=== PATIENT | male | born 1975 | race Caucasian/White ===

== ENCOUNTER 2017-06-04 09:44 | Emergency (ER) | payer MEDICAID ==
[~2017-06-04] VITALS: Ht 185.4 cm; Wt 120.2 kg
[~2017-06-04 09:44] MED LIST: ALB18R INH; AMOX-559 PO; AZIT-1 PO; BENZ100C4 PO; CYCL10TA29 PO; FLUT16SP19 NS; HYDR-4308 PO; KET10 PO; NAPR500T75 PO; ONDA4TAB PO; PRED20TA6 PO; TRIA15CR40 TP
--- NOTE | 2017-06-04 09:46 | ER Report ---
History and Physical Time Seen By MD: 09:45 HPI/ROS CHIEF COMPLAINT: 2 days of vomiting and diarrhea HISTORY OF PRESENT ILLNESS: Patient is a 42-year-old male who presents to the emergency department for evaluation of nausea vomiting and diarrhea. Patient denies any abdominal pain. Patient has too numerous to count episodes of vomiting and diarrhea but notes no blood or mucus in the stool and denies blood in the vomit. Patient admits to history of asthma but no other medical problems. Patient has no known ill contacts. REVIEW OF SYSTEMS: Respiratory: No cough, no dyspnea. Cardiovascular: No chest pain, no palpitations. Gastrointestinal: Nausea vomiting and diarrhea, no abdominal pain Musculoskeletal: No back pain. Allergies: Coded Allergies: No Known Drug Allergies (Unverified , 06/04/17) Home Meds Active Scripts Diphenoxylate Hcl/Atropine (LOMOTIL TABLET) 1 Each Tablet, 1 EACH PO Q4H for diarrhea, #16 TAB 0 Refills Prov:QUE LOVE MD 06/04/17 Ondansetron Hcl (ZOFRAN) 4 Mg Tablet, 4 MG PO Q8H for Nausea, #15 TAB 0 Refills Prov:QUE LOVE MD 06/04/17 Discontinued Scripts Albuterol Sulfate (VENTOLIN HFA) 18 Gm Inh, 1-2 PUFF INH Q4-6H Y for SHORTNESS OF BREATH, #1 INH Prov:XIANG CASTAÑEDA PA-C 03/23/17 Benzonatate 100 Mg Cap (TESSALON PERLE 100 MG CAP) 100 Mg Capsule, 100 MG PO TID Y for COUGH, #15 CAP Prov:XIANG CASTAÑEDA PA-C 03/23/17 Prednisone (PREDNISONE) 20 Mg Tablet, 20 MG PO BID, #6 TAB Prov:XIANG CASTAÑEDA PA-C 03/23/17 Azithromycin (ZITHROMAX) 250 Mg Tablet, 0 PO QDAY, #6 TAB Prov:XIANG CASTAÑEDA PA-C 03/23/17 Past Medical/Surgical History Asthma Hx Smoking: No Smoking Status: Never Smoker Hx Substance Use Disorder: No Hx Alcohol Use: No Constitutional Vital Sign - Last 24 Hours 06/04/17 09:50 Temp 97.5 Pulse 69 Resp 16 B/P (MAP) 154/112 Pulse Ox 92 O2 Delivery Room Air Intake and Output 06/04/17 06/04/17 06/05/17 15:01 23:01 07:01 Intake Total 1000 ml Balance 1000 ml Physical Exam General Appearance: The patient is alert, has no immediate need for airway protection and no current signs of toxicity. Eyes: Pupils equal and round no injection. Respiratory: Chest is non tender, lungs are clear to auscultation. Cardiac: regular rate and rhythm Gastrointestinal: Abdomen is soft and non tender, no masses, bowel sounds normal. Musculoskeletal: Neck: Neck is supple and non tender. Extremities have full range of motion and are non tender. Skin: No rashes or lesions. Medical Decision Making Data Points Result Diagram: 06/04/17 0949 06/04/17 0949 Laboratory Hematology Test 06/04/17 09:49 Red Blood Count 5.54 M/uL (4.00-5.60) Mean Corpuscular Volume 84.0 fL (80.0-96.0) Mean Corpuscular Hemoglobin 29.0 pg (26.0-33.0) Mean Corpuscular Hemoglobin Concent 34.5 g/dL (32.0-36.0) Red Cell Distribution Width 13.6 % (11.5-14.5) Mean Platelet Volume 9.1 fL (7.2-11.1) Neutrophils (%) (Auto) 54.9 % (39.4-72.5) Lymphocytes (%) (Auto) 34.6 % (17.6-49.6) Monocytes (%) (Auto) 7.8 % (4.1-12.4) Eosinophils (%) (Auto) 1.7 % (0.4-6.7) Basophils (%) (Auto) 1.0 % (0.3-1.4) Nucleated RBC Relative Count (auto) 0.1 /100WBC Neutrophils # (Auto) 3.8 K/uL (2.0-7.4) Lymphocytes # (Auto) 2.4 K/uL (1.3-3.6) Monocytes # (Auto) 0.5 K/uL (0.3-1.0) Eosinophils # (Auto) 0.1 K/uL (0.0-0.5) Basophils # (Auto) 0.1 K/uL (0.0-0.1) Nucleated RBC Absolute Count (auto) 0.01 K/uL Sodium Level 140 mmol/L (137-145) Potassium Level 4.0 mmol/L (3.5-5.0) Chloride Level 103 mmol/L (98-107) Carbon Dioxide Level 23 mmol/L (22-30) Blood Urea Nitrogen 14 mg/dl (9-21) Creatinine 0.80 mg/dl (0.66-1.25) Glomerular Filtration Rate Calc > 60.0 Random Glucose 90 mg/dl (75-110) Calcium Level 9.2 mg/dl (8.4-10.2) Total Bilirubin 0.5 mg/dl (0.2-1.3) Aspartate Amino Transf (AST/SGOT) 30 U/L (0-35) Alanine Aminotransferase (ALT/SGPT) 42 U/L (0-56) Alkaline Phosphatase 96 U/L (0-126) Total Protein 8.0 gm/dl (6.3-8.2) Albumin 4.5 g/dl (3.5-5.0) Lipase 95 U/L (23-300) Chemistry Test 06/04/17 09:49 White Blood Count 6.9 k/uL (4.5-11.0) Red Blood Count 5.54 M/uL (4.00-5.60) Hemoglobin 16.1 g/dL (14.0-18.0) Hematocrit 46.5 % (42.0-52.0) Mean Corpuscular Volume 84.0 fL (80.0-96.0) Mean Corpuscular Hemoglobin 29.0 pg (26.0-33.0) Mean Corpuscular Hemoglobin Concent 34.5 g/dL (32.0-36.0) Red Cell Distribution Width 13.6 % (11.5-14.5) Platelet Count 216 K/uL (150-450) Mean Platelet Volume 9.1 fL (7.2-11.1) Neutrophils (%) (Auto) 54.9 % (39.4-72.5) Lymphocytes (%) (Auto) 34.6 % (17.6-49.6) Monocytes (%) (Auto) 7.8 % (4.1-12.4) Eosinophils (%) (Auto) 1.7 % (0.4-6.7) Basophils (%) (Auto) 1.0 % (0.3-1.4) Nucleated RBC Relative Count (auto) 0.1 /100WBC Neutrophils # (Auto) 3.8 K/uL (2.0-7.4) Lymphocytes # (Auto) 2.4 K/uL (1.3-3.6) Monocytes # (Auto) 0.5 K/uL (0.3-1.0) Eosinophils # (Auto) 0.1 K/uL (0.0-0.5) Basophils # (Auto) 0.1 K/uL (0.0-0.1) Nucleated RBC Absolute Count (auto) 0.01 K/uL Glomerular Filtration Rate Calc > 60.0 Calcium Level 9.2 mg/dl (8.4-10.2) Total Bilirubin 0.5 mg/dl (0.2-1.3) Aspartate Amino Transf (AST/SGOT) 30 U/L (0-35) Alanine Aminotransferase (ALT/SGPT) 42 U/L (0-56) Alkaline Phosphatase 96 U/L (0-126) Total Protein 8.0 gm/dl (6.3-8.2) Albumin 4.5 g/dl (3.5-5.0) Lipase 95 U/L (23-300) ED Course/Re-evaluation ED Course 06/04/2017 10:19:26 am Plan at this time will be IV hydration with normal saline we will give 4 mg of Zofran and 2 doses of Lomotil. Re-evaluation 06/04/2017 11:30:49 am patient feeling improved after 1 L of normal saline Lomotil and Zofran. Plan will be discharge home with a 48 hours off from work patient also requesting refill prescription of his Proventil inhaler. Decision to Disposition Date: Jun 04, 2017 Decision to Disposition Time: 11:31 Depart Departure Latest Vital Signs Vital Signs Date Time Temp Pulse Resp B/P (MAP) Pulse Ox O2 Delivery O2 Flow Rate FiO2 06/04/17 09:50 97.5 69 16 154/112 92 Room Air Impression: Primary Impression: Vomiting Additional Impression: Diarrhea Condition: Improved Disposition: HOME OR SELF-CARE New Scripts Diphenoxylate Hcl/Atropine (LOMOTIL TABLET) 1 Each Tablet 1 EACH PO Q4H for diarrhea, #16 TAB 0 Refills Prov: QUE LOVE MD 2/1/18 Ondansetron Hcl (ZOFRAN) 4 Mg Tablet 4 MG PO Q8H for Nausea, #15 TAB 0 Refills Prov: QUE LOVE MD 06/04/17 Departure Forms: ER Transition Record, Medications Reconciliation, Off Work/ School Form, School or Work Release?: Work Number of days to be released: 2 Patient Portal Information Patient Instructions: Acute Diarrhea (ED), Acute Nausea and Vomiting (DC) Problem Qualifiers Primary Impression: Vomiting Vomiting type: unspecified Vomiting Intractability: non-intractable Nausea presence: with nausea Qualified Codes: R11.2 - Nausea with vomiting, unspecified Additional Impression: Diarrhea Diarrhea type: unspecified type Qualified Codes: R19.7 - Diarrhea, unspecified QUE LOVE MD Jun 04, 2017 09:46
[2017-06-04] MEDS ORDERED: NS(*) 0.9% 1000 ML BAG 1,000 ML IV ONE (10:05)
[2017-06-04] MEDS ORDERED: ONDANSETRON 4 MG/2 ML VIAL IVP ONE (10:05)
[2017-06-04] MEDS ORDERED: DIPHENOX/ATROPINE 2.5-0.025MG PO ONE (10:05)
[2017-06-04 10:14] LABS: PLATELET COUNT, AUTOMATED 216 K/uL (150-450)
[2017-06-04] MEDS ORDERED: DIPH-1 PO (11:33)
[2017-06-04] MEDS ORDERED: ONDA4TAB97 PO (11:33)
[2017-06-04] MEDS ORDERED: ALBUTEROL SULFATE 90 MCG/ACT 8.5 GM HNH INH ONE (11:35)
[2017-06-04 11:37] VITALS: BP 145/92
== END 2017-06-04 11:37 | disposition home or self-care (01) ==
LOC: ER 09:55
DX: R11.2 Nausea with vomiting, unspecified (principal); R19.7 Diarrhea, unspecified
CPT/HCPCS: 83690; 85025; 96361; 96374; 99284; J2405; J7030; 82040; 82247; 82310; 82374; 82435; 82565; 82947; 84075; 84132; 84155; 84295; 84450; 84460; 84520

== ENCOUNTER 2017-06-28 14:46 | Emergency (ER) | payer MEDICAID ==
[~2017-06-28] VITALS: Ht 177.8 cm; Wt 120.2 kg
[~2017-06-28 14:46] MED LIST changes: +DIPH-1 PO; +ONDA4TAB97 PO
--- NOTE | 2017-06-28 14:54 | ER Report ---
History and Physical Time Seen By MD: 14:53 HPI/ROS CHIEF COMPLAINT: cough and uri symptoms HISTORY OF PRESENT ILLNESS: PT and his family started with symptoms this past Thursday. Pt states that he has had nasal congestion, cough, fever by touch, chills, bodyaches and fatigue. Pt has been using otc allergy medication but not feeling any better. Pt has hx of asthma and no longer has a inhaler. Not improving so came to ed for evaluation. REVIEW OF SYSTEMS: Constitutional: + fever, + chills. Eyes: No discharge. ENT: No sore throat. + nasal congestion Cardiovascular: No chest pain, no palpitations. Respiratory: + cough, + shortness of breath. Gastrointestinal: No abdominal pain, no vomiting. Genitourinary: No hematuria. Musculoskeletal: No back pain. + bodyaches Skin: No rashes. Neurological: No headache. Allergies: Coded Allergies: No Known Drug Allergies (Unverified , 06/28/17) Home Meds Discontinued Scripts Diphenoxylate Hcl/Atropine (LOMOTIL TABLET) 1 Each Tablet, 1 EACH PO Q4H for diarrhea, #16 TAB 0 Refills Prov:QUE LOVE MD 06/04/17 Ondansetron Hcl (ZOFRAN) 4 Mg Tablet, 4 MG PO Q8H for Nausea, #15 TAB 0 Refills Prov:QUE LOVE MD 06/04/17 Past Medical/Surgical History Pmhx: asthma, bronchitis Pshx: neg Reviewed Nurses Notes: Yes Old Medical Records Reviewed: Yes Hx Smoking: No Smoking Status: Never Smoker Hx Substance Use Disorder: No Hx Alcohol Use: No Constitutional Vital Sign - Last 24 Hours 06/28/17 06/28/17 06/28/17 06/28/17 14:48 14:48 14:51 14:56 Temp 97.8 Pulse 88 97 84 Resp 16 B/P (MAP) 152/109 (123) 152/109 Pulse Ox 93 94 95 O2 Delivery Room Air 06/28/17 06/28/17 06/28/17 06/28/17 15:01 15:06 15:11 15:13 Pulse 87 92 94 B/P (MAP) 125/88 (100) Pulse Ox 93 94 94 06/28/17 06/28/17 06/28/17 06/28/17 15:16 15:21 15:26 15:30 Pulse 90 91 91 B/P (MAP) 126/98 (107) Pulse Ox 94 93 93 06/28/17 06/28/17 06/28/17 06/28/17 15:31 15:34 15:34 15:39 Pulse 89 89 80 Resp 18 18 Pulse Ox 93 93 O2 Delivery Room Air Physical Exam General Appearance: The patient is alert, has no immediate need for airway protection and no signs of toxicity. Eyes: Pupils equal and round no pallor or injection, EOMI ENT: no pharyngeal erythema or exudates, Mucous membranes are moist, TM are nl b/l, + nasal congestion Respiratory: There are no retractions, lungs are clear to auscultation, no active wheezing on exam Cardiovascular: Regular rate and rhythm. pulses are equal and symmetrical Gastrointestinal: Abdomen is soft and non tender, no masses, bowel sounds normal, no guarding, no rigidity or rebound Neurological: Cranial nerves II-XII grossly intact, no sensory or motor loss Skin: Warm and dry, no rashes. Musculoskeletal: Neck is supple non tender, no vertebral tenderness Extremities are nontender, non swollen and have full range of motion. DIFFERENTIAL DIAGNOSIS: After history and physical exam differential diagnosis was considered for sinusitis, influenza, viral syndrome, bronchiti Medical Decision Making Data Points Laboratory Hematology Test 06/28/17 14:57 Influenza Virus Type A (PCR) Negative (NEGATIVE) Influenza Virus Type B (PCR) Positive (NEGATIVE) Chemistry Test 06/28/17 14:57 Influenza Virus Type A (PCR) Negative (NEGATIVE) Influenza Virus Type B (PCR) Positive (NEGATIVE) ED Course/Re-evaluation ED Course Will check a flu 06/28/2017 3:46:52 pm Pt is positive for flu. PT symptoms have been since Thursday so out of tamiflu range. WIll tx symptomatically Decision to Disposition Date: Jun 28, 2017 Decision to Disposition Time: 15:43 Depart Departure Latest Vital Signs Vital Signs Date Time Temp Pulse Resp B/P (MAP) Pulse Ox O2 Delivery O2 Flow Rate FiO2 06/28/17 15:39 80 18 06/28/17 15:34 93 Room Air 06/28/17 15:30 126/98 (107) 06/28/17 14:48 97.8 Impression: Primary Impression: Influenza B Condition: Condition Unchanged Disposition: HOME OR SELF-CARE New Scripts Albuterol Sulfate 90 Mcg/Act (PROAIR HFA 90 MCG/ACT) 8.5 Gm Hfa.aer.ad 2 PUFF IH Q4-6H Y for WHEEZING, #1 INHALER Prov: BUCK EID DO 06/28/17 Departure Forms: ER Transition Record, Medications Reconciliation, Off Work/ School Form, School or Work Release?: Work Number of days to be released: 3 Patient Portal Information Patient Instructions: Influenza (DC) Additional Instructions: You have the flu Motrin (advil, ibuprofen) 600mg every 6 hours as needed for fever and aches. Tylenol 650mg every 4 hours as needed for fever and aches Use your inhaler 2 puffs every 4 hours as needed for cough or wheezing (script sent to [facility]) No work for 2 days. BUCK EID DO Jun 28, 2017 14:54
[2017-06-28] MEDS ORDERED: PHENYLEPHRINE 0.5% 15 ML BTL ONE (15:00)
[2017-06-28] MEDS ORDERED: ALBUTEROL/IPRATROPIUM 3 ML NEB NEB ONE (15:30)
[2017-06-28] MEDS ORDERED: ALBU8.5H IH (15:44)
[2017-06-28 15:51] VITALS: BP 135/88
== END 2017-06-28 15:52 | disposition home or self-care (01) ==
LOC: ER 15:07
DX: J10.1 Influenza due to other identified influenza virus with other respiratory manifestations (principal)
CPT/HCPCS: 87502; 94640; 99283; J7620

== ENCOUNTER 2017-07-10 09:04 | Emergency (ER) | payer MEDICAID ==
[~2017-07-10 09:04] MED LIST changes: +ALBU8.5H IH
--- NOTE | 2017-07-10 09:09 | ER Report ---
History and Physical Time Seen By MD: 09:08 HPI/DARI CHIEF COMPLAINT: Sore throat HISTORY OF PRESENT ILLNESS: 42-year-old male tested positive for influenza a week ago come back to the emergency department again this time for a sore throat has not seen primary care does not have primary care says his throat and sore for the last couple of days hurts when he swallows has not taken any over- the-counter medication again has not seen any type of medical care and came to the emergency department patient has no additional complaints at this time REVIEW OF SYSTEMS: Respiratory: No cough, no dyspnea. Cardiovascular: No chest pain, no palpitations. Gastrointestinal: No vomiting, no abdominal pain. Musculoskeletal: No back pain. Remainder of the 14 system rev: Yes Allergies: Coded Allergies: No Known Drug Allergies (Unverified , 07/10/17) Home Meds Active Scripts Albuterol Sulfate 90 Mcg/Act (PROAIR HFA 90 MCG/ACT) 8.5 Gm Hfa.aer.ad, 2 PUFF IH Q4-6H Y for WHEEZING, #1 INHALER Prov:BUCK EID V DO 06/28/17 Reviewed Nurses Notes: Yes Old Medical Records Reviewed: Yes Hx Smoking: No Smoking Status: Never Smoker Hx Substance Use Disorder: No Hx Alcohol Use: No Constitutional Vital Sign - Last 24 Hours 07/10/17 09:07 Temp 97.4 Pulse 81 Resp 16 B/P (MAP) 138/103 Pulse Ox 93 O2 Delivery Room Air Physical Exam General Appearance: The patient is alert, has no immediate need for airway protection and no current signs of toxicity. [ ] Eyes: Pupils equal and round no injection. Respiratory: Chest is non tender, lungs are clear to auscultation. Cardiac: regular rate and rhythm [ ] Gastrointestinal: Abdomen is soft and non tender, no masses, bowel sounds normal. Musculoskeletal: Neck: Neck is supple and non tender. Extremities have full range of motion and are non tender. Skin: No rashes or lesions. [Throat examination no tonsillar exudate or uvular deviation no seven-day been lymphadenopathy some mild erythema otherwise unremarkable exam ] DIFFERENTIAL DIAGNOSIS: After history and physical exam differential diagnosis was considered for viral versus bacterial pharyngitis Medical Decision Making Data Points Laboratory Hematology Test 07/10/17 09:09 Group A Streptococcus Screen Negative (NEGATIVE) Chemistry Test 07/10/17 09:09 Group A Streptococcus Screen Negative (NEGATIVE) ED Course/Re-evaluation ED Course Clinical course medical decision-making sore throat for the last couple days was positive for once a rapid strep is negative this is either part of the viral etiology and pathology of the viral influenza and/or a viral strep pharyngitis we will go ahead and have him treated [id number] with current medications and advised him to follow-up with primary care Decision to Disposition Date: Jul 10, 2017 Decision to Disposition Time: 09:29 Depart Departure Latest Vital Signs Vital Signs Date Time Temp Pulse Resp B/P (MAP) Pulse Ox O2 Delivery O2 Flow Rate FiO2 07/10/17 09:07 97.4 81 16 138/103 93 Room Air Impression: Primary Impression: Pharyngitis Condition: Improved Disposition: HOME OR SELF-CARE Referrals: YESSENIA PETTY MD 5 Days Patient Instructions: Pharyngitis (ED) JAIRON SERRANO MD Jul 10, 2017 09:09
[2017-07-10 09:32] VITALS: BP 156/87
== END 2017-07-10 09:33 | disposition home or self-care (01) ==
LOC: ER 09:07
DX: J02.9 Acute pharyngitis, unspecified (principal)
CPT/HCPCS: 87081; 87880; 99282